=== PATIENT | female | born 1965 | race Caucasian/White ===

== ENCOUNTER 2019-08-01 11:10 | Outpatient (CLI) | payer OTHER, SELFPAY ==
--- NOTE | ~2019-08-01 | MR_ITS ---
EXAMINATION: MR cervical spine wo/w con DATE: 08/01/2019 12:04 INDICATION: Other symptoms and signs involving musculoskeletal system. Weakness and right arm pain. TECHNIQUE: Magnetic resonance imaging (MRI) of the cervical spine was performed without and with 17 m L MultiHance intravenous contrast. Sequences included sagittal and axial T2-weighted FSE, sagittal ST IR FSE, and sagittal and axial T1-weighted FSE. Postcontrast sequences included sagittal and axial T1 -weighted FS FSE. COMPARISON: None FINDINGS: Bone alignment is normal. Vertebral body heights are normal. There is mildly decreased disc height at C5-C6 and C6-C7. The spinal cord signal intensity is normal. The following disc levels are specifically discussed: C2-C3: The disc does not extend beyond the endplate margin. There is no uncovertebral joint osteoarth ritis. There is mild bilateral facet joint osteoarthritis. There is no neural foraminal stenosis. The re is no central canal stenosis. C3-C4: The disc does not extend beyond the endplate margin. There is no uncovertebral joint osteoarth ritis. There is no facet joint osteoarthritis. There is no neural foraminal stenosis. There is no anton tral canal stenosis. C4-C5: The disc does not extend beyond the endplate margin. There is no uncovertebral joint osteoarth ritis. There is no facet joint osteoarthritis. There is no neural foraminal stenosis. There is no anton tral canal stenosis. C5-C6: There is a central protrusion. There is mild bilateral uncovertebral joint osteoarthritis. The re is no facet joint osteoarthritis. There is no neural foraminal stenosis. There is mild central can al stenosis. C6-C7: There is a central protrusion. There is mild bilateral uncovertebral joint osteoarthritis. The re is no facet joint osteoarthritis. There is no neural foraminal stenosis. There is mild central can al stenosis. C7-T1: The disc does not extend beyond the endplate margin. There is no uncovertebral joint osteoarth ritis. There is mild right and moderate left facet joint osteoarthritis. There is mild bilateral neur al foraminal stenosis. There is no central canal stenosis. IMPRESSION: 1. Mild cervical spondylosis. Reviewed, dictated and finalized at location A. LEY WIRE INSTALLER
[2019-08-01 11:40] LABS: Blood Urea Nitrogen 4 mg/dL (8-26); Estimated Glomerular Filt Rate > 60
== END 2019-08-01 11:11 | disposition home or self-care (01) ==
LOC: ANHIMG 11:16
PROVIDERS: PCP Family Medicine; Visit Provider Nurse Practitioner Family
DX: M47.892 Other spondylosis, cervical region (principal)
CPT/HCPCS: 72156; A9577

== ENCOUNTER 2020-06-20 07:58 | Outpatient (CLI) | payer OTHER, SELFPAY ==
--- NOTE | ~2020-06-20 | NM_ITS ---
EXAMINATION: NM fela stress w perfusion DATE: 06/20/2020 13:39 INDICATION: Dyspnea on exertion. Abnormal electrocardiogram. TECHNIQUE: Rest images were obtained following intravenous administration of 10.9 mCi Tc99m tetrofosm in (Myoview). The patient was infused intravenously with Lexiscan (regadenoson). Then, 31.2 mCi Tc99m tetrofosmin (Myoview) was administered intravenously, and stress images were obtained. Data was sheyla nstructed into short axis and horizontal and vertical long axis SPECT images. Gated SPECT images were also obtained. COMPARISON: None. FINDINGS: There is no definite reversible or fixed perfusion abnormality to suggest ischemia or infar ction. There is no segmental wall motion abnormality. Left ventricular ejection fraction measures > 70%. IMPRESSION: 1. No definite ischemia or infarct. 2. Normal left ventricular ejection fraction measuring >70%. Reviewed, dictated and finalized at location A. ERY MANAGER
--- NOTE | 2020-06-20 08:02 | ECHO_ITS ---
Patient Info Name: Vane Dinh Age: 54 years : 1965 Gender: Female Ht: 62 in Wt: 180 lbs BSA: 1.92 m2 HR: 69 bpm BP: 125 / 80 mmHg Technical Quality: Good Exam Date: 06/20/2020 8:13 AM Exam Location: [facility] Patient Status: Outpatient Admit Date: 06/20/2020 Staff Ordering Physician: Shin Olvera DO Airport Operations Coordinator: Jenna Killian RDCS Attending Provider: Shin Olvera DO Referring Physician: Wade CHAMPAGNE; Exam Type: CA echo dop color flow w con Study Info Indications R06.00 - Dyspnea, unspecified Complete two-dimensional, color flow and Doppler transthoracic echocardiogram is performed. Strain analysis performed. Summary 1. Complete two-dimensional, color flow and Doppler transthoracic echocardiogram is performed. 2. Left ventricular chamber dimension is normal. 3. Left ventricular systolic function is normal, estimated at 60-65%. 4. The left ventricular diastolic function is grade I diastolic dysfunction. 5. E/e' 15 is elevated. 6. Global longitudinal strain is normal at -17.5%. 7. There is mild aortic valve regurgitation. 8. There is mild mitral valve regurgitation. 9. There is trace tricuspid valve regurgitation. 10. No pulmonary hypertension, estimated pulmonary arterial systolic pressure is 32 mmHg. 11. There is trace pulmonic regurgitation. 12. Normal inferior vena cava with <50% collapse upon inspiration consistent with elevated right atrial pressure, 10 mmHg. Left Ventricle E/e' 15 is elevated. Global longitudinal strain is normal at -17.5%. Left ventricular chamber dimension is normal. Left ventricular systolic function is normal, estimated at 60-65%. The left ventricular diastolic function is grade I diastolic dysfunction. Right Ventricle Right ventricular chamber dimension is normal. Right ventricular systolic function is normal. Left Atria Left atrial chamber dimension is normal. Right Atria Right atrial chamber dimension is normal. Aortic Valve The aortic valve is trileaflet. There is no aortic valve stenosis. There is mild aortic valve regurgitation. Pulmonic Valve There is trace pulmonic regurgitation. Mitral Valve There is no mitral valve stenosis. There is mild mitral valve regurgitation. Tricuspid Valve There is trace tricuspid valve regurgitation. No pulmonary hypertension, estimated pulmonary arterial systolic pressure is 32 mmHg. Pericardium/Pleural There is no pericardial effusion. Inferior Vena Cava Normal inferior vena cava with <50% collapse upon inspiration consistent with elevated right atrial pressure, 10 mmHg. Aorta The aortic root size at the sinus of Valsalva is normal. Left Ventricular Outflow Tract Name Value Normal LVOT 2D LVOT Diameter 2.03 cm LVOT Doppler LVOT Peak Gradient 6 mmHg LVOT Mean Gradient 3 mmHg LVOT VTI 25.45 cm LVOT VTI/AV VTI Ratio 0.73 LVOT Stroke Volume 82.67 ml LVOT CO 5.39 l/min LVOT CI
--- NOTE | 2020-06-20 08:02 | EST_ITS ---
Patient Info Name: Vane Dinh Age: 54 years : 1965 Gender: Female Ht: 62 in Wt: 180 lbs BSA: 1.92 m2 Exam Date: 06/20/2020 9:53 AM Exam Location: [facility] Stress Patient Status: Outpatient Admit Date: 06/20/2020 Staff Ordering Physician: Shin Olvera DO Attending Provider: Shin Olvera DO Exercise Technologist: Benita Lomax CT Exercise Physician: Shin Olvera DO Exam Type: CA stress fela w NM Study Info Indications R06.00 - Dyspnea, unspecified A regadenoson stress test was performed. Summary 1. 1. Negative lexiscan stress test for ischemic ST changes by ECG criteria. 2. 2. Stable hemodynamics throughout the test. 3. 3. Nuclear scan to follow and will be reported separately. Please correlate with it. 4. 4. Patient informed of the above results. Protocol: Lexiscan Stress ECG Details Stage: REST Duration (min): 1 min : 3 sec HR (bpm): 67 SBP (mmHg): 123 DBP (mmHg): 66 Stage: REST Duration (min): 13 min : 40 sec HR (bpm): 72 SBP (mmHg): 123 DBP (mmHg): 66 Stage: STAGE 1 Duration (min): 1 min : 0 sec HR (bpm): 75 SBP (mmHg): 105 DBP (mmHg): 63 Stage: RECOVERY Duration (min): 1 min : 0 sec HR (bpm): 81 SBP (mmHg): 107 DBP (mmHg): 64 Stage: RECOVERY Duration (min): 2 min : 0 sec HR (bpm): 78 SBP (mmHg): 107 DBP (mmHg): 64 Stage: RECOVERY Duration (min): 3 min : 0 sec HR (bpm): 78 SBP (mmHg): 120 DBP (mmHg): 67 Stage: RECOVERY Duration (min): 3 min : 6 sec HR (bpm): 78 SBP (mmHg): 120 DBP (mmHg): 67 Rest HR: 72 bpm Peak HR: 82 bpm Rest Sys BP: 123 mmHg Peak Sys BP: 120 mmHg Max Pred HR: 167 bpm % Max Pred HR: 49 % Target HR: 142 bpm Max RPP: 9,840 bpm*mmHg Termination Reason: Completed protocol Cardiac Symptoms: Shortness of breath Total Time: 1 min : 0 sec Rest Pereyra BP: 66 mmHg Peak Pereyra BP: 67 mmHg Total Dose: 0.4 mg Resting ECG Sinus rhythm, IRBBB. Stress ECG No ST changes. Arrhythmias None. Report Signatures
== END 2020-06-20 07:59 | disposition home or self-care (01) ==
PROVIDERS: PCP Family Medicine; Visit Provider Internal Medicine Cardiovascular Disease
DX: R06.00 Dyspnea, unspecified (principal)
CPT/HCPCS: 78452; 93017; A9502; C8929; J2785

== ENCOUNTER 2022-06-26 13:54 | Emergency (ER) | payer OTHER, SELFPAY ==
--- NOTE | ~2022-06-26 | XR_ITS ---
EXAMINATION: XR chest 2V DATE: 06/26/2022 15:03 INDICATION: 3 days of cough. Right lower rib discomfort. TECHNIQUE: PA and lateral views of the chest were obtained. COMPARISON: Chest radiograph dated 08/11/2018 FINDINGS: The lungs are clear with no focal airspace opacities, pulmonary edema, pleural effusion or pneumothor ax. The cardiomediastinal silhouette is normal. Visualized bones and soft tissues are unremarkable. IMPRESSION: 1. No acute cardiopulmonary disease. Reviewed, dictated and finalized at location A. L ATTENDANT
[2022-06-26 14:05] VITALS: BP 133/72; PULSE 94; RESP 20; TEMP 37; O2SAT 98
--- NOTE | 2022-06-26 14:17 | ED.URI ---
HPI - URI/Sore Throat General Chief Complaint: Upper Respiratory Infection Stated Complaint: trouble breathing; painful breathing; back pain Time Seen by Provider: 06/26/22 14:20 Source: patient and RN notes reviewed Mode of arrival: ambulatory Limitations: no limitations History of Present Illness HPI Narrative: 56-year-old female presents with concern for cough, right chest pain and upper back pain with coughing and deep breathing, shortness of breath with exertion, fatigue. Reports a history of COPD and pneumonia. Reports she has used her nebulizer without relief MD elicited complaint: cough Related Data Home Medications Medication Instructions Recorded Confirmed bupropion HCl 150 mg 24 hr tablet, 150 mg PO QAM 05/17/19 07/31/20 extended release buspirone 10 mg tablet 10 mg PO TID 05/17/19 07/31/20 ergocalciferol (vitamin D2) 1,250 50,000 unit PO WEEKLY 05/17/19 07/31/20 mcg (50,000 unit) capsule olanzapine 20 mg tablet 20 mg PO DAILY 05/17/19 07/31/20 paroxetine HCl 20 mg tablet (Paxil) 20 mg PO DAILY 05/17/19 07/31/20 trazodone 150 mg tablet 150 mg PO BID 05/17/19 07/31/20 venlafaxine 75 mg tablet 75 mg PO TID 05/17/19 07/31/20 isosorbide dinitrate 30 mg tablet 30 mg PO ONCE 07/31/20 07/31/20 rosuvastatin 40 mg tablet 40 mg PO DAILY 07/31/20 07/31/20 Allergies Allergy/AdvReac Type Severity Reaction Status Date / Time adhesive Allergy Mild blisters Verified 10/15/21 12:00 codeine Allergy Unknown rash Verified 10/15/21 12:00 Penicillins Allergy Unknown Rash Verified 10/15/21 12:00 Sulfa (Sulfonamide Allergy Unknown rash Verified 10/15/21 12:00 Antibiotics) ERYTHROMYCINS Allergy Mild swelling Uncoded 10/15/21 12:00 Review of Systems Review of Systems: CONSTITUTIONAL: Reports malaise, sweats EYES: Denies visual changes, redness, or discharge. ENT: Reports rhinorrhea, congestion, sinus pain, otalgia and sore throat. CARDIOVASCULAR: Denies chest pain, palpitations, or edema. RESPIRATORY: Reports cough, chest and back pain with coughing, dyspnea. GASTROINTESTINAL: Denies abdominal pain, nausea, vomiting, diarrhea SKIN: Denies rash or itching. MUSCULOSKELETAL: Reports myalgia. All systems reviewed & are unremarkable except as noted in HPI and below PMFSH Past Medical History Medical History Bipolar disorder current episode depressed Carpal tunnel syndrome COPD (chronic obstructive pulmonary disease) Cubital tunnel syndrome GERD (gastroesophageal reflux disease) IRAM (obstructive sleep apnea) Tobacco abuse Family History Family History Father Hypertension Heart disease Alcohol abuse CAD in [place] artery Mother COPD (chronic obstructive pulmonary disease) CAD in [place] artery Depression Social History Social History (System 10/15/21 @ 12:00 by Ewelina Noel) Social History: Smoking packs per day: 0.5 Smoking cigarettes per day: 10.0 Years smoked: 30 Smoking pack-years: 15.00 Smoking status: Current every day smoker Tobacco type: cigarettes Second hand tobacco smoke exposure: Yes Alcohol intake: former Alcohol use details: social drinker only Substance use: never Substance use type: does not use Additional living arrangements comments: Pt lives with her fiance Gender identity (if verbalized by the patient): Female Sexual Orientation (if Verbalized by the Patient): Straight or Heterosexual Comments At time of signature, agree with nursing past medical, surgical, social and family history. There is no relevant family history pertinent to the presenting complaint Exam Narrative: GENERAL: Nontoxic-appearing and in no acute distress. HEAD: Normocephalic EYES: PERRLA, conjunctivae clear ENT: Nares clear. Mucous membranes moist. TM pearly gastelum with dull light reflex bilaterally; no tragal tenderness. Oropharynx not erythematous without les
--- NOTE | 2022-06-26 14:32 | PC.NURSE ---
1428- PT being transferred to [facility] for XR d/t xray being unavailable at this facility presently. RN to RN report given.
== END 2022-06-26 15:22 | disposition home or self-care (01) ==
PROVIDERS: Emergency Provider Nurse Practitioner
DX: J44.1 Chronic obstructive pulmonary disease with (acute) exacerbation (principal); Z20.822 Contact with and (suspected) exposure to COVID-19; K21.9 Gastro-esophageal reflux disease without esophagitis; F31.9 Bipolar disorder, unspecified; F17.210 Nicotine dependence, cigarettes, uncomplicated
CPT/HCPCS: 71046; 87426; 99213; C9803; G0463

== ENCOUNTER 2023-01-04 16:54 | Emergency (ER) | payer BC, SELFPAY ==
[2023-01-04 17:14] VITALS: BP 129/63; PULSE 80; RESP 18; TEMP 36.2; O2SAT 100
--- NOTE | 2023-01-04 18:18 | ED.SKABFB ---
HPI - Skin/Abscess/Foreign Bdy General Chief complaint: Skin/Abscess/Foreign Body Stated complaint: irritation and pain on buttocks Time Seen by Provider: 01/04/23 18:10 Source: patient Mode of arrival: ambulatory Limitations: no limitations History of Present Illness HPI narrative: 57-year-old female presented for complaint of rash to buttocks for 3 days. Reports rash is painful, and spreads from left buttock into the crease. Used A and D ointment for what she thought was hemorrhoid, and Epson salt baths without relief. States the Epson bath burned the rash. Reports recent Crohn's flare of diarrhea. Denies lip, tongue, or throat swelling, shortness of breath or wheezing. Denies changes to soap, detergent, lotion, or any other exposures. No one else in the house or any contacts with similar symptoms. Related Data Home Medications Medication Instructions Recorded Confirmed bupropion HCl 150 mg 24 hr tablet, 150 mg PO QAM 05/17/19 01/04/23 extended release buspirone 10 mg tablet 10 mg PO TID 05/17/19 01/04/23 ergocalciferol (vitamin D2) 1,250 50,000 unit PO WEEKLY 05/17/19 01/04/23 mcg (50,000 unit) capsule olanzapine 20 mg tablet 20 mg PO DAILY 05/17/19 01/04/23 paroxetine HCl 20 mg tablet (Paxil) 20 mg PO DAILY 05/17/19 01/04/23 trazodone 150 mg tablet 150 mg PO BID 05/17/19 01/04/23 venlafaxine 75 mg tablet 75 mg PO TID 05/17/19 01/04/23 isosorbide dinitrate 30 mg tablet 30 mg PO ONCE 07/31/20 01/04/23 rosuvastatin 40 mg tablet 40 mg PO DAILY 07/31/20 01/04/23 Allergies Allergy/AdvReac Type Severity Reaction Status Date / Time adhesive Allergy Mild blisters Verified 01/04/23 17:44 codeine Allergy Unknown rash Verified 01/04/23 17:44 Penicillins Allergy Unknown Rash Verified 01/04/23 17:44 Sulfa (Sulfonamide Allergy Unknown rash Verified 01/04/23 17:44 Antibiotics) ERYTHROMYCINS Allergy Mild swelling Uncoded 01/04/23 17:44 Review of Systems Review of Systems: CONSTITUTIONAL: Denies body aches, fever, chills, or sweats. EYES: Denies visual changes, redness, or discharge. ENT: Denies rhinorrhea, congestion CARDIOVASCULAR: Denies chest pain, palpitations, or edema. RESPIRATORY: Denies cough or dyspnea. GASTROINTESTINAL: Denies abdominal pain, nausea, vomiting, or diarrhea. SKIN: Per HPI MUSCULOSKELETAL: Denies back pain, joint pain, or myalgia. NEUROLOGIC: Denies headache, numbness, tingling, or weakness. [facility] Past Medical History Medical History (Updated 01/04/23 @ 18:29 by Lona Edwards APRN) Bipolar disorder current episode depressed Carpal tunnel syndrome COPD (chronic obstructive pulmonary disease) Crohn's disease of large intestine without complication Cubital tunnel syndrome GERD (gastroesophageal reflux disease) IRAM (obstructive sleep apnea) Tobacco abuse Family History Family History Father Hypertension Heart disease Alcohol abuse CAD in [place] artery Mother COPD (chronic obstructive pulmonary disease) CAD in [place] artery Depression Social History Social History Social History: Smoking packs per day: 0.5 Smoking cigarettes per day: 10.0 Years smoked: 30 Smoking pack-years: 15.00 Smoking status: Current every day smoker Tobacco type: cigarettes Second hand tobacco smoke exposure: Yes Alcohol intake: former Alcohol use details: social drinker only Substance use: never Substance use type: does not use Living arrangements: with family Additional living arrangements comments: Pt lives with her fiance Occupation/Education: unemployed Gender identity (if verbalized by the patient): Female Sexual Orientation (if Verbalized by the Patient): Straight or Heterosexual Comments At time of signature, I have reviewed and agree with nursing past medical, surgical, social and family history unless otherwise noted. Please se
== END 2023-01-04 18:28 | disposition home or self-care (01) ==
PROVIDERS: Emergency Provider Nurse Practitioner Family
DX: B02.9 Zoster without complications (principal); F17.210 Nicotine dependence, cigarettes, uncomplicated; J44.9 Chronic obstructive pulmonary disease, unspecified; K50.10 Crohn's disease of large intestine without complications; K21.9 Gastro-esophageal reflux disease without esophagitis; F31.9 Bipolar disorder, unspecified
CPT/HCPCS: 99213; G0463